=== PATIENT | female | born 1955 | race African-American/Black ===

== ENCOUNTER 2018-10-19 11:06 | Emergency (ER) | payer MEDICAID ==
[~2018-10-19] VITALS: Ht 162.6 cm; Wt 73.0 kg
[2018-10-19 11:18] VITALS: BP 135/90
== END 2018-10-19 13:50 | disposition home or self-care (01) ==
LOC: ER 11:06
DX: B34.8 Other viral infections of unspecified site (principal); F17.200 Nicotine dependence, unspecified, uncomplicated
CPT/HCPCS: 71045; 99283

== ENCOUNTER 2019-10-25 09:41 | Emergency (ER) | payer MEDICAID ==
[~2019-10-25] VITALS: Ht 162.6 cm; Wt 76.0 kg
[2019-10-25 09:47] VITALS: BP 162/84
== END 2019-10-25 10:28 | disposition left against medical advice (07) ==
LOC: ER 09:53
DX: R07.9 Chest pain, unspecified (principal); Z53.21 Procedure and treatment not carried out due to patient leaving prior to being seen by health care provider
CPT/HCPCS: 93005

== ENCOUNTER 2024-05-29 20:09 | Emergency (ER) | payer BC, MEDICAID ==
[~2024-05-29] VITALS: Ht 162.6 cm; Wt 75.3 kg
[2024-05-29 20:12] VITALS: BP 146/85; PULSE 110; RESP 20; TEMP 99.7; O2SAT 96
== END 2024-05-29 21:00 | disposition left against medical advice (07) ==
LOC: ER 20:09
DX: R05.9 Cough, unspecified (principal); Z53.21 Procedure and treatment not carried out due to patient leaving prior to being seen by health care provider

== ENCOUNTER 2025-01-10 00:21 | Emergency (ER) | payer BC, MEDICAID ==
[~2025-01-10] VITALS: Ht 162.6 cm; Wt 68.0 kg
[~2025-01-10 00:21] MED LIST: ALBU18HF2 IH; AMLO10TA80 MT; GUAI600T26 MT; LIP40 MT; P20 MT; PRED10TA MT; PRED5TAB MT; UMEC1DIS INH
[2025-01-10 01:26] VITALS: PULSE 90; RESP 20; O2SAT 97
[2025-01-10] MEDS: ALBUTEROL (0.083%) 2.5MG/3ML NEB HHN ONE (01:26)
[2025-01-10 02:38] LABS: INFLUENZA TYPE A Presumptive Negative (Pres. Neg.); INFLUENZA TYPE B Presumptive Negative (Pres. Neg.)
[2025-01-10] MEDS: ACETAMINOPHEN 325MG TABLET PO NR (02:45)
[2025-01-10] MEDS: GUAIFENESIN 600MG ER TABLET PO SCH (02:57)
[2025-01-10 03:40] LABS: BASOPHILS % 1.4 % (0.0-2.0); EOSINOPHILS % 1.8 % (0.0-5.0); HEMATOCRIT. 43.9 % (36.0-48.0); HEMOGLOBIN. 14.8 g/dL (12.0-16.0); LYMPHOCYTES % 26.8 % (20.0-50.0); MEAN CORPUSCULAR HEMOGLOBIN 30.9 pg (28.0-32.0); MEAN CORPUSCULAR HGB CONC 33.7 g/dL (31.0-37.0); MEAN CORPUSCULAR VOLUME 91.6 fL (81.0-99.0); MEAN PLATELET VOLUME 7.5 fl (7.4-10.4); MONOCYTES % 12.3 % (2.0-8.0); NEUTROPHILS % 57.7 % (40.0-76.0); PLATELET 269 x1000/uL (130-400); RED BLOOD CELL COUNT 4.79 mill/uL (4.2-5.4); RED CELL DISTRIBUTION WIDTH 14.7 % (11.6-14.6); WHITE BLOOD COUNT 9.5 x1000/uL (4.5-11.0)
[2025-01-10 03:53] LABS: CHLORIDE 97 mEq/L (98-107); POTASSIUM 3.8 mEq/L (3.5-5.1); SODIUM 137 mEq/L (136-145)
[2025-01-10 03:54] LABS: CARBON DIOXIDE 28 mEq/L (21-32)
[2025-01-10 03:59] LABS: CREATININE 0.9 mg/dL (0.6-1.0); GLUCOSE 116 mg/dL (70-105); UREA NITROGEN BLOOD 16 mg/dL (9-23)
[2025-01-10 04:15] LABS: TROPONIN I HIGH SENSITIVITY 36 ng/L (3.0-34)
[2025-01-10] MEDS ORDERED: ALBU90AE INH (04:20)
[2025-01-10] MEDS ORDERED: GUAI600T26 MT (04:20)
[2025-01-10 06:31] LABS: TROPONIN I HIGH SENSITIVITY 34 ng/L (3.0-34)
[2025-01-10 07:19] VITALS: BP 121/74; PULSE 89; RESP 20; TEMP 36.6; O2SAT 99
== END 2025-01-10 09:02 | disposition home or self-care (01) ==
LOC: ER 00:23
DX: R05.9 Cough, unspecified (principal); Z00.01 Encounter for general adult medical examination with abnormal findings; F17.200 Nicotine dependence, unspecified, uncomplicated; F10.90 Alcohol use, unspecified, uncomplicated; J44.9 Chronic obstructive pulmonary disease, unspecified; Z79.52 Long term (current) use of systemic steroids; Z20.822 Contact with and (suspected) exposure to COVID-19; Z79.899 Other long term (current) drug therapy; Y90.9 Presence of alcohol in blood, level not specified
CPT/HCPCS: 36415; 71045; 80048; 84484; 85025; 87426; 87804; 93005; 94640; 99285